=== PATIENT | male | born 1945 | race Caucasian/White ===

== ENCOUNTER 2025-04-22 07:25 | Outpatient (CLI) | payer OTHER, SELFPAY ==
--- NOTE | ~2025-04-22 | PE_ITS ---
EXAMINATION: PET_PETPSMAST_PT DATE: 04/22/2025 10:25 INDICATION: Prostate cancer TECHNIQUE: 5.72 mCi of Illucix Ga-68([id number]) was administered i.v. Low dose computed tomography (CT) images were acquired from the base of the brain to the base of the brain to the proximal thighs for attenuation correction and anatomic localization. Positron emission tomography (PET) images were acquired in the same distribution beginning 75 minutes after injection. Images including fused PET/CT images were reconstructed in axial, coronal, and sagittal planes. Automated exposure control technique was employed. The dose-length product was 695.33mGy-cm. COMPARISON: None FINDINGS: Head/neck: Typical pattern of relatively symmetric physiologic increased activity in the lacrimal, parotid and submandibular glands as well as along the mucosa of the nasal and oral cavities, pharynx and hypopharynx. No pathologically enlarged cervical lymphadenopathy or suspicious foci of increased uptake in the visualized head or neck. Chest: There are multiple scattered bilateral calcified pulmonary nodules along with calcified mediastinal and bilateral hilar lymph nodes consistent with old granulomatous disease. No suspicious PSV may avid nodules, pneumonia, pulmonary edema or pleural effusion. Heart size is normal. Atherosclerotic coronary artery calcifications. No pericardial effusion. Large sliding-type hiatal hernia. Fusiform ascending thoracic aortic aneurysm measuring up to 4.6 cm. No pathologically enlarged or PSMA avid thoracic lymphadenopathy. Abdomen/pelvis/proximal thighs: Physiologic renal accumulation and excretion of activity in the kidneys, bladder and along portions of ureters. Prostatomegaly measuring 5.1 x 4.8 cm. There are metallic densities at the prostate, likely representing fiducial markers versus less likely surgical clips or brachytherapy therapy seeds. There is an approximately 1-1.5 cm region of increased PSMA activity without radiologic correlate on CT with maximal SUV of 4.5 suspicious for recurrent prostate cancer. Normal degree and slightly heterogenous pattern of increased uptake throughout the liver and spleen without radiologic correlate or dominant PSMA avid lesion. The gallbladder, pancreas and bilateral adrenal glands are normal. Moderate uptake scattered throughout the bowels with typical duodenal and proximal jejunal predominance and without radiologic correlate, also likely physiologic. Scattered diverticulosis without adjacent from trace stranding to suggest diverticulitis. No other abnormal foci of increased uptake or pathologically enlarged lymphadenopathy in the abdomen, pelvis or proximal thighs. Musculoskeletal: Severe lower cervical and mild thoracic and lumbar spondylosis. No suspicious lytic, blastic or abnormally PSMA avid bone lesions. IMPRESSION: 1. Small region of increased PSMA activity in the enlarged prostate suspicious for recurrent prostate treatment post reported prior radiation treatment. No evident metastatic disease. 2. 4.6 cm fusiform ascending thoracic aortic aneurysm. Reviewed, dictated and finalized at location A. IMPRESSION: 1. Small region of increased PSMA activity in the enlarged prostate suspicious for recurrent prostate treatment post reported prior radiation treatment. No ev ident metastatic disease. 2. 4.6 cm fusiform ascending thoracic aortic aneurysm.
--- OUTSIDE RECORDS SUMMARY | 2025-04-22 07:32 | XMS_ITS | Encounter Summary ---
Author Organization [facility] Address [address] [place] [address] Care Team Providers Care Spiritual Care Coordinator Name Role Phone Unavailable Primary Care Provider Unavailabl e Encounter Details Date Type Department Care Team (Late st Contact Info) Description 07/15/2021 Lab Requisition [facility] [address] [place] [id number] Yves Aviles Jr., MD [address] [place] [address] Social History Tobacco Use Types Packs/Day Years Used Date Smoking Tobacco: Never Assessed Sex and Gender Information Value Date Recorded Sex Assigned at Not on file 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 Gender Identity Not on file Sexual Orientation Not on file documented as of this encounter Plan of Treatment Not on file documented as of this encounter Procedures Procedure Name Priority Date/Time Associated Diagnosis Comments DERMATOPATHOLOGY Routine 07/14/2021 3:33 AM DAILY SALES AUDIT CLERK documented in this encounter Results * DERMATOPATHOLOGY (07/14/2021 3:33 AM DAILY SALES AUDIT CLERK) Case Report Dermatopathology Report Case: [id number] Authorizing Provider: Yves Aviles Jr., MD Collected: 07/14/2021 03:33 AM Ordering Location: [facility] Received: 07/15/2021 11:29 AM Pathologist: Kenisha Luna MD Specimen: Skin, right superior lateral forehead 1 1:46 PM DAILY SALES AUDIT CLERK DERMATOPATHOLOGY LABORATORY Final Diagnosis Specimen A. SKIN, right superior lateral forehead: VERRUCA VULGARIS (B07.8) 1 1:46 PM DAILY SALES AUDIT CLERK DERMATOPATHOLOGY LABORATORY at 1346 DAILY SALES AUDIT CLERK Clinical History Seborrheic keratosis vs prurigo nodule vs hypertrophic actinic keratosis. 1 1:46 PM [facility] DERMATOPATH[facility]Y [facility]OR[facility] Gross Description Specimen A: Received is one formalin filled container labeled with the patient's name and designated right superior lateral forehead. The specimen consists of a shave biopsy measuring 10x7x2 mm. Jar 0. 1 1:46 PM [facility] DERMATOPATHOLOGY [facility]ORATORY Microscopic Description Specimen A. SKIN, right superior lateral forehead: There is digitated epidermal hyperplasia, hypergranulosis, vacuolated granular layer cells, and compact hyperorthokeratosis . 1 1:46 PM [facility] DERMATOPATHOLOGY [facility]ORATORY Disclaimer An external and internal positive and negative controls are appropriate for the histochemical, immunohistochemical and immunofluorescence stain(s) in this case (if any), except where stated explicitly. The performance characteristics of the stain(s) cited in this report were developed and its performance characteristic determined by the Dermatopathology Laboratory at [facility], directed by Dr. Huong Freeman. These tests need not be, and therefore are not, approved by the [place] Food and Drug Administration. The tests are used for clinical purposes. Billing Codes Specimen Charges Stain Charges 09638 1 1 1:46 PM DAILY SALES AUDIT CLERK DERMATOPATHOLOGY LABORATORY Embedded Images 1 1:46 PM [facility] DERMATOPATHOLOGY [facility]ORY Pathology/Cytolo gy TISSUE SPECIMEN FROM SKIN / Unknown 07/14/2021 3:33 AM DAILY SALES AUDIT CLERK 07/15/2021 11:29 AM DAILY SALES AUDIT CLERK Yves Aviles Jr., MD LAB - PATHOLOGY/CYTOLOG Y ORDERABLES Final Result DERMATOPATHOLOGY LABORATORY [facility] - Department of Dermatology [address] [place] [address], [facility] [phone] documented in this encounter Visit Diagnoses Not on filedocumented in this encounter
--- OUTSIDE RECORDS SUMMARY | 2025-04-22 07:32 | XMS_ITS | Clinical Summary ---
Author Organization [facility] [employer] Address [address] [place] [address] Care Team Providers Care Cost And Sales Record Supervisor Name Role Phone Unavailable Primary Care Provider Unavailabl e Source Comments [facility] [employer],non-owned Affiliates and Associated Physician Practices is amultiple site organization consisting of ambulatory clinics and hospital sitesin [place], [place], [place] and [place]. This disclosure is being madepursuant to the Care Everywhere program and may not contain all information available regarding this patient. 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 Gender Identity Not on file Sexual Orientation Not on file Plan of Treatment Health Maintenance Due Date Last Done Comments DTAP/TDAP/TD VACCINES (1 - Tdap) 1962 PNEUMOCOCCAL VACCINE 50+ (1 of 1 - PCV) 1993 ZOSTER VACCINE (1 of 2) 1993 Respiratory Syncytial Virus (RSV) Vaccine Pt: or over 60 yrs (1 - 1-dose 75+ series) 2018 COVID-19 VACCINE ( - 2023-2 5 season) 2024 DEPRESSION SCREENING 08/29/2024 INFLUENZA VACCINE (#1) 2025 HEPATITIS B VACCINE Aged Out No longe r eligible based on patient's age to complete this topic HIB VACCINE Aged Out No longer eligi ble based on patient's age to complete this topic HPV VACCINE Aged Out No longer eligi ble based on patient's age to complete this topic MENINGOCOCCAL (Group B) VACC INE SHARED DECISION-MAKING Aged Out No longer eligibl e based on patient's age to complete this topic MENINGOCOCCAL GROUPS A/C/Y/W VACCINE Aged Out No longer eligible b ased on patient's age to complete this topic Insurance [facility]
== END 2025-04-22 07:26 | disposition home or self-care (01) ==
LOC: ANHIMG 07:30
PROVIDERS: Visit Provider Urology
DX: C61 Malignant neoplasm of prostate (principal); R97.21 Rising PSA following treatment for malignant neoplasm of prostate; I71.20 Thoracic aortic aneurysm, without rupture, unspecified
CPT/HCPCS: 78815; A9596